=== PATIENT | male | born 1970 | race Hispanic/Latino ===

== ENCOUNTER 2022-11-09 14:46 | Emergency (ER) | payer BC, OTHER ==
[~2022-11-09] VITALS: Ht 165.1 cm; Wt 81.6 kg
== END 2022-11-09 17:10 | disposition home or self-care (01) ==
LOC: ER 15:03
DX: S06.0X0A Concussion without loss of consciousness, initial encounter (principal); R42 Dizziness and giddiness; W20.8XXA Other cause of strike by thrown, projected or falling object, initial encounter; Y92.098 Other place in other non-institutional residence as the place of occurrence of the external cause
CPT/HCPCS: 70450; 72125; 99283